=== PATIENT | male | born 1995 | race Caucasian/White ===

== ENCOUNTER 2017-07-22 | Emergency (ER) | payer OTHER ==
[~2017-07-22] VITALS: Ht 175.3 cm; Wt 78.0 kg
[2017-07-22] MEDS ORDERED: TETRACAINE 0.5% OPHTH SOLUTION 4ML BOTTLE. ONE (00:14)
[2017-07-22] MEDS ORDERED: FLUORESCEIN 1MG EYE STRIP. ONE (00:14)
[2017-07-22 00:29] VITALS: BP 140/77
[2017-07-22] MEDS ORDERED: IBUPROFEN 400 MG TABLET. PO ONE (00:45)
[2017-07-22] MEDS ORDERED: ERYTHROMYCIN 0.5% OPHTH OINTMENT 1GM TUBE. OD ONE (01:00)
[2017-07-22] MEDS ORDERED: GENT5DRO3 OD (01:06)
--- NOTE | 2017-07-22 01:06 | PHYS DOC ---
Past History Past Medical History: No Pertinent History Past Surgical History: Tonsillectomy Alcohol Use: None Drug Use: None Adult General Chief Complaint Chief Complaint: EYE PROBLEMS HPI HPI 21-year-old male now presents the emergency department complaining of right eye foreign body sensation. 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 Last evening he was grinding metal when a piece of metal flew into his eye. He is explains foreign body sensation since. Normal vision. Patient think he can see a foreign body on his cornea. Review of Systems Review of Systems Constitutional: Denies fever or chills [] Eyes: Denies change in visual acuity, redness, or eye pain [] HENT: Denies nasal congestion or sore throat [] Respiratory: Denies cough or shortness of breath [] Cardiovascular: No additional information not addressed in HPI [] GI: Denies abdominal pain, nausea, vomiting, bloody stools or diarrhea [] : Denies dysuria or hematuria [] Musculoskeletal: Denies back pain or joint pain [] Integument: Denies rash or skin lesions [] Neurologic: Denies headache, focal weakness or sensory changes [] Endocrine: Denies polyuria or polydipsia [] All other systems were reviewed and found to be within normal limits, except as documented in this note. Current Medications Current Medications Current Medications Medications (Trade) Dose Ordered Sig/Gigi Start Time Stop Time Status Last Admin Dose Admin Erythromycin (Romycin) 0.25 inch 1X ONCE 07/22/17 01:00 07/22/17 01:01 UNV Fluorescein Sodium (Ful-Yoko 1mg) 1 strip STK-MED ONCE 07/22/17 00:14 07/22/17 00:15 DC Ibuprofen (Motrin) 800 mg 1X ONCE 07/22/17 00:45 07/22/17 00:46 UNV Tetracaine HCl (Tetracaine) 40 drop STK-MED ONCE 07/22/17 00:14 07/22/17 00:15 DC Allergies Allergies Allergies Coded Allergies Type Severity Reaction Last Updated Verified No Known Drug Allergies 07/22/17 No Physical Exam Physical Exam (Patient no acute distress. Scleral injection right eye. Small visible foreign body at 6 o'clock position of the cornea. Pupil normal and reactive. No hyphema. Small rust ring. Dye uptake at site of foreign body only. Positive relief with Alcaine. Slit-lamp exam shows a metallic foreign body with small rust ring at the aforementioned position Constitutional: Well developed, well nourished, no acute distress, non-toxic appearance. [] HENT: Normocephalic, atraumatic, bilateral external ears normal, oropharynx moist, no oral exudates, nose normal. [] Eyes: EOMI, conjunctiva normal, no discharge. [] Neck: Normal range of motion, no tenderness, supple, no stridor. [] Cardiovascular: No tachycardia Lungs & Thorax: Normal respiratory rate with no asymmetry of the chest wall excursion and no increased work of breathing Abdomen: Nondistended abdomen Skin: Warm, dry, no erythema, no rash. [] Back: Normal supple appearing neck Extremities: no cyanosis, no clubbing, ROM intact, no edema. [] Neurologic: Alert and oriented X 3, normal motor function, normal sensory function, no focal deficits noted. [] Psychologic: Affect normal, judgement normal, mood normal. [] Current Patient Data Vital Signs Vital Signs Date Time Temp Pulse Resp B/P (MAP) Pulse Ox O2 Delivery O2 Flow Rate FiO2 07/22/17 00:29 98.3 55 18 99 EKG EKG [] Radiology/Procedures Radiology/Procedures Procedure: Removal of metallic foreign body by ER M.D. Patient with relief with Alcaine administration. Slit-lamp used and metallic foreign body at 6 o'clock position over cornea removed by 18-gauge needle with longitudinal access of the needle in the coronal plane of the patient's face successfully dissecting away most of the rust ring and the metallic foreign body. Patient tolerated well without complication. Lids were everted and no foreign body or abnormality visible[] Course & Med Decision Making Course & Med Decision Making Pertinent Labs and Imaging studies reviewed. (See chart for details) Patient with metallic foreign body. Removed by ER M.D. see procedure note. Tetanus up-to-date. No competitions or procedure. Anabolic ointment administered and prescription for drops dispensed. Small amount of rust ring residual which patient is aware. He will follow-up with is commercial lending vice president tomorrow for reevaluation and definitive removal of rust ring. Patient aware critical importance of close follow-up and strict return precautions given Dragon Disclaimer Dragon Disclaimer This electronic medical record was generated, in whole or in part, using a voice recognition dictation system. Departure Departure: Impression: Primary Impression: Corneal rust ring of right eye Additional Impression: Corneal foreign body Disposition: HOME, SELF-CARE Condition: IMPROVED Referrals: NON,STAFF (PCP) Patient Instructions: Eye - Corneal Foreign Body Additional Instructions: You had a metallic foreign body on your right cornea at the 6 o'clock position. This was removed however there is still a small amount of residual rust ring present. Use ointment 1/4 inch every 6 hours overnight and during the day use antibiotic drops 2 drops every 2 hours while awake. Follow-up with an commercial lending vice president tomorrow for reevaluation and removal of your rust ring. If you have any discomfort take ibuprofen 800 mg every 6 hours and Tylenol every 4 hours as needed. Always wear appropriate complete eye protection while grinding and doing metal working or welding. Scripts Gentamicin Sulfate (GENTAMICIN SULFATE) 5 Ml Drops 2 DROP OD Q2HR W/A, #5 ML Prov: ABHISHEK WOODY MD 07/22/17 Problem Qualifiers ABHISHEK WOODY MD July 22, 2017 01:06
[2017-07-22] MEDS ORDERED: HYDROcodone/APAP 5/325MG 1 TAB TABLET PO ONE (01:15)
[2017-07-22] MEDS ORDERED: TETRACAINE 0.5% OPHTH SOLUTION 4ML BOTTLE. OD ONE (05:45)
[2017-07-22] MEDS ORDERED: FLUORESCEIN 1MG EYE STRIP. OD ONE (05:45)
== END 2017-07-22 01:31 | disposition home or self-care (01) ==
LOC: ER
DX: T15.01XA Foreign body in cornea, right eye, initial encounter (principal); X58.XXXA Exposure to other specified factors, initial encounter; Y93.89 Activity, other specified; Y99.0 Civilian activity done for income or pay; Y92.89 Other specified places as the place of occurrence of the external cause
CPT/HCPCS: 65222; 99284-25